=== PATIENT | female | born 1965 | race Caucasian/White ===

== ENCOUNTER 2018-03-20 22:52 | Observation (INO) | payer OTHER ==
[2018-03-20 23:16] LABS: #Basophils 0.1 thou/uL (0.0-0.2); #Eosinphils 0.2 thou/uL (0.0-0.7); #Lymphocytes 4.3 thou/uL (1.20-3.40); #Monocytes 0.9 thou/uL (0.11-0.59); #Neutrophils 4.1 thou/uL (1.40-6.50); %Basophils 1.1 % (0.0-1.0); %Eosinophils 2.5 % (0.0-10.0); %Lymphocytes 44.7 % (21.0-51.0); %Monocytes 9.1 % (0.0-10.0); %Neutrophils 42.6 % (42.0-75.0); Hemoglobin 13.3 g/dL (12.0-16.0); Mean Corpuscular HGB CONC 32.4 g/dL (32.0-36.0); Mean Corpuscular Hemoglobin 27.3 pg (27.0-31.0); Mean Corpuscular Volume 84.3 fL (78.0-98.0); Mean Platelet Volume 7.5 fL (7.4-10.4); Platelet Count 214 thou/uL (130-400); RBC Distribution Width 11.3 % (11.5-14.5); Red Blood Cell (RBC) Count 4.86 mill/uL (4.20-5.40); White Blood Cell (WBC) Count 9.6 thou/uL (4.8-10.8)
[2018-03-20] MEDS ORDERED: Magnesium Sulfate 2 GM/100 ML BAG ONE (23:17)
[2018-03-20 23:38] LABS: ALT (SGPT) 11 U/L (8-55); AST (SGOT) 13 U/L (5-34); Albumin 4.1 g/dL (3.5-5.0); Alkaline Phosphatase 81 U/L (40-150); Anion Gap 11 mmol/L (10-20); BUN (Urea Nitrogen) 21 mg/dL (9.8-20.1); Bilirubin, Total 0.3 mg/dL (0.2-1.2); Calc. Creatinine Clearance 0 mL/min (70-130); Calcium 9.9 mg/dL (7.8-10.44); Carbon Dioxide 26 mmol/L (22-29); Chloride 105 mmol/L (98-107); Estimated GFR-MDRD 67; Globulin 3.1 g/dL (2.4-3.5); Glucose 116 mg/dL (70-105); Lipase 31 U/L (8-78); Magnesium 1.8 mg/dL (1.6-2.6); Potassium 3.4 mmol/L (3.5-5.1); Protein, Total 7.2 g/dL (6.0-8.3); Sodium 139 mmol/L (136-145)
[2018-03-20 23:41] LABS: CKMB 0.5 ng/mL (0-6.6); Troponin I Less than 0.010 ng/mL (< 0.028)
[2018-03-20 23:58] LABS: Free T4 (Free Thyroxine) 1.4 ng/dL (0.70-1.48)
[2018-03-20 23:59] LABS: Thyroid Stimulating Hormone 0.3031 uIU/mL (0.35-4.94)
[2018-03-21 01:00] LABS: Bilirubin Negative (Negative); Blood, Urine Negative (Negative); Clarity CLOUDY (Clear); Glucose, Urine (Dipstick) Negative (Negative); Leukocyte Moderate (Negative); Nitrite Positive (Negative); Protein, Urine (Dipstick) Negative (Neg-Trace); Specific Gravity, Urine 1.011 (1.002-1.036); Urobilinogen 0.2 mg/dL (0.2-1.0); pH, Urine 6.5 (5.0-9.0)
[2018-03-21 01:03] LABS: Bacteria/HPF 4+ HPF (None Seen); Hyaline Casts/LPF 7-10 HYALINE CAST LPF (0-3 Hyaline); Pathc Cast-AUWi Flag 0.29 (0-2.49); RBC/HPF 0-3 HPF (0-3); Squamous Epithelial 0-3 HPF (0-3)
[2018-03-21 02:41] LABS: Troponin I Less than 0.010 ng/mL (< 0.028)
[2018-03-21 05:31] LABS: Troponin I Less than 0.010 ng/mL (< 0.028)
[2018-03-21] MEDS ORDERED: Diabetic Tussin 200 MG/10 ML UDCUP PO PRN (07:23)
[2018-03-21] MEDS ORDERED: Calcium Carbonate 500 MG ChewTAB PO PRN (07:23)
[2018-03-21] MEDS ORDERED: Ondansetron HCl/PF 4 MG/2 ML Vial IVP PRN (07:23)
[2018-03-21] MEDS ORDERED: Mag-Al 1200 mg/1200 mg/30 ML UDCUP PO PRN (07:23)
[2018-03-21] MEDS ORDERED: hydrALAZINE 20 MG/ML VIAL SLOW IVP PRN (07:23)
[2018-03-21] MEDS ORDERED: Senokot 8.6 MG TAB PO PRN (07:23)
[2018-03-21] MEDS ORDERED: Nitroglycerin 0.4 MG TAB (25 Tab Bottle) SL PRN (07:23)
[2018-03-21] MEDS ORDERED: cloNIDine 0.1 MG TAB PO PRN (07:23)
[2018-03-21] MEDS ORDERED: Benzonatate 100 MG CAP PO PRN (07:23)
[2018-03-21] MEDS ORDERED: Loratadine 10 MG TAB PO PRN (07:23)
[2018-03-21] MEDS ORDERED: Acetaminophen 325 MG TAB PO PRN (07:23)
[2018-03-21] MEDS ORDERED: Bisacodyl 5 MG TAB PO PRN (07:23)
[2018-03-21] MEDS ORDERED: Lorazepam 1 MG TAB PO PRN (07:23)
[2018-03-21] MEDS ORDERED: Zolpidem Tartrate 5 MG TAB PO PRN (07:33)
[2018-03-21] MEDS: cefTRIAXone\\ROCEPHIN 1 GM in Sodium Chloride 0.9% 100 ML IVPB SCH (08:24)
[2018-03-21] MEDS: Enoxaparin Sodium 40 MG/0.4 ML SYRINGE SC SCH (08:25)
[2018-03-21] MEDS: Multivit, Therapeutic 1 TAB PO SCH (08:25)
[2018-03-21] MEDS: Famotidine 20 MG TAB PO SCH ×2 (08:25→20:41)
[2018-03-21] MEDS ORDERED: Aspirin 325 MG TAB PO SCH (09:00)
[2018-03-21] MEDS ORDERED: Sodium Chloride 0.9% 1,000 ML IV SCH (10:30)
--- NOTE | 2018-03-21 10:43 | CON ---
DATE OF CONSULTATION: 03/21/2018 REASON FOR CONSULTATION: Presyncope and abnormal EKG. PRIMARY TRAVELING PLANT OPERATOR: Dr. Nilesh Winn. HISTORY OF PRESENT ILLNESS: Ms. House is a very pleasant 52-year-old white female who comes to the ospital for feeling presyncopal. She was at the [employer] festival yesterday. She had mojito with dinner and then she was having a glass of wine. She had not drank not even half of the glass that dennis d some weird taste to it, so she decided to throw it away and then started feeling tingly, lightheade d and felt like she was close to passing out. She never really did pass out, but was close to this. She stayed there having several episodes of this sort from about 10:00 p.m. to midnight when she fin ally went to see the paramedics [facility] and they recommend that she go to the hospital for evaluation. In the ER, she had initial EKG that showed normal sinus rhythm. A repeat EKG was o verread as atrial flutter; however, on my evaluation, it is sinus rhythm. She is probably just shaki ng during the EKG and has a lot of baseline artifact, but it is normal sinus rhythm. She was diagnos ed with a urinary tract infection with positive nitrites in the urine. She was started on antibiotic s. She already feels much better. During her telemetry monitoring, she has had rare PVCs and she dennis d a 4 beat run of PVCs as well. She was a patient of Dr. Winn. The last time she seen was in . She was being followed for hypertension and a family history of coronary artery disease. She dennis d a gastric sleeve at that time and she actually lost 165 pounds total and she has managed to keep em off. PAST MEDICAL HISTORY: 1. Hypertension, now diet controlled since her gastric sleeve. 2. Thyroid cancer. PAST SURGICAL HISTORY: 1. Gastric sleeve. 2. Hysterectomy secondary to endometriosis. 3. Left knee surgery. 4. Thyroidectomy. OUTPATIENT MEDICATIONS: 1. Zolpidem 10 mg a day. 2. Metoprolol 50 mg a day. 3. Levothyroxine 150 mcg a day. ALLERGIES: MORPHINE gives her rash. FAMILY HISTORY: Positive for early coronary artery disease in father. SOCIAL HISTORY: Social alcohol use, no tobacco or drugs. REVIEW OF SYSTEMS: A 12-point review of systems was done and is all negative unless stated in the hi story of present illness. PHYSICAL EXAMINATION: VITAL SIGNS: Temperature 97.5, pulse 61, respiration rate 20, satting 99% on room air, blood pressur e 119/70. GENERAL: Awake, alert, oriented x3, in no distress. HEENT: Normocephalic, atraumatic. NECK: Supple. LUNGS: Clear. CARDIOVASCULAR: S1, S2, no S3, S4, no murmurs. ABDOMEN: Soft, positive bowel sounds. EXTREMITIES: No edema. SKIN: Warm and dry. LABORATORY WORK: Reviewed. CBC is normal. Normal white count. Chemistry with a potassium of 3.4, glucose is 116. Troponin is negative x3. TSH was low at 0.3, but free T4 was normal at 1.4, normal albumin. UA had positive nitrites and moderate leukocyte esterase with 4+ bacteria and 4-6 white lindsey ls. IMAGING: EKG was reviewed, which showed normal sinus rhythm on the first EKG. Second EKG shows norm al sinus rhythm. There is no atrial flutter on the EKG. ASSESSMENT AND PLAN: 1. Urinary tract infection: Most likely this is the source of all her symptoms. Already being allen mary grace with antibiotics by primary team. 2. A 4 beat run of premature ventricular contractions: She probably will need a stress test. This can be done as an outpatient. We will try to set her up in the next 1-2 weeks with a nuclear stress test and follow up with Dr. Winn. Thank you for letting us to participate in the care of your patient. We will sign off. Please call with any questions.
[2018-03-21 11:17] LABS: Anion Gap 12 mmol/L (10-20); BUN (Urea Nitrogen) 12 mg/dL (9.8-20.1); Calc. Creatinine Clearance 134 mL/min (70-130); Calcium 9.4 mg/dL (7.8-10.44); Carbon Dioxide 22 mmol/L (22-29); Chloride 110 mmol/L (98-107); Estimated GFR-MDRD 84; Glucose 89 mg/dL (70-105); Potassium 4.1 mmol/L (3.5-5.1); Sodium 140 mmol/L (136-145)
--- NOTE | 2018-03-21 12:35 | RAD ---
AP VIEW CHEST: 03/21/2018 HISTORY: Syncope. FINDINGS: AP view chest demonstrates EKG leads seen over the chest. The lungs are well aerated. No evidence o f active intrathoracic disease is seen. No evidence of effusions, pneumonia, or pneumothorax is seen . IMPRESSION: Unremarkable one view chest. POS: [facility]
[2018-03-21] MEDS: Sodium Chloride 0.9% 1,000 ML IV SCH (14:09)
--- NOTE | 2018-03-21 15:46 | HP ---
DATE OF ADMISSION: 03/21/2018 PRIMARY CARE PHYSICIAN: Maykel Shirley M.D. CHIEF COMPLAINT: Near syncope. HISTORY OF PRESENT ILLNESS: Ms. House is a 52-year-old female with past medical history of thyroid c ancer status post thyroidectomy, on Synthroid, as well as history of hypertension, who presented to [facility] ER with the above-mentioned complaint. History is mainly obtained by the patient herself. [facility] medical records have been reviewed. Ms. House reports that she has been having some increased weakness and fatigue for the last few days. Yesterday, while she was drinking wine at 1 festival locally, she felt very weak, tingly and felt l missael she was going to pass out. Initially, she felt tingling in her lips and then her finger started got to tingle. She got short of breath and EMS was called. There is a report of EMS noticing ventri cular tachycardia en route. Upon arrival to the emergency room, the initial EKG showed normal sinus rhythm, but a repeat EKG was done, which was read as atrial flutter with 3:1 block by the emergency r oom physician. Her lab work was rather unimpressive. Cardiac enzymes normal. TSH 0.30 with normal free T4. She was given magnesium sulfate 2 grams and aspirin in the ER and was admitted for further workup of arrhythmias. The patient denies any other recent illnesses. She denies any fever or chills. She denies any chest pain, orthopnea or PND. She does have some increased urinary frequency and dysuria, but denies any nausea, vomiting, diarrhea. She denies any muscle weakness or problems with her speech or swallowing . No facial droop. No memory loss. PAST MEDICAL HISTORY: Hypertension, history of thyroid cancer status post thyroidectomy. PAST SURGICAL HISTORY: 1. Gastric sleeve operation in 2013. 2. Total thyroidectomy. 3. Uterine surgery for endometriosis. 4. section. 5. Hysterectomy. 6. Left knee surgery. ALLERGIES: MORPHINE. FAMILY HISTORY: Coronary artery disease in both of the parents, diagnosed around age 50. SOCIAL HISTORY: She is and lives with her family. No history of drug, tobacco or alcohol ab use. Drinks socially. CURRENT MEDICATIONS: Ambien 10 mg at bedtime, multivitamin 1 tablet daily, Toprol-XL 50 mg daily, le vothyroxine 150 mcg daily, Florastor 250 mg daily. REVIEW OF SYSTEMS: A 12-point review of systems was done, which is negative except for those mention ed in the history and physical. Constitutional: Weight loss or gain, ability to conduct usual activities. Skin: Rash, itching. Eyes: Double vision, pain. ENT/Mouth: Nose bleeding, neck stiffness, pain, tenderness. Cardiovascular: Palpitations, dyspnea on exertion, orthopnea. Respiratory: Shortness of breath, wheezing, cough, hemoptysis, fever or night sweats. Gastrointestinal: Poor appetite, abdominal pain, heartburn, nausea, vomiting, constipation, or diarrhea. Genitourinary: Urgency, frequency, dysuria, nocturia. Musculoskeletal: Pain, swelling. Neurologic/Psychiatric: Anxiety, depression. Allergy/Immunologic: Skin rash, bleeding tendency. LABORATORY DATA: CBC is unremarkable. Serum chemistries upon presentation showed BUN of 21, potassi um 3.4. Cardiac enzymes, troponin less than 0.010 x3. BNP is normal at 23. Free T4 normal at 1.40. TSH is adequately suppressed at 0.3031. Urinalysis was ordered by myself, which shows positive nit rite, leukocyte, wbc's and +4 bacteria. Chest x-ray by my review shows no pulmonary edema, effusion or infiltrate. Twelve lead EKG by my review shows normal sinus rhythm in the first and second EKG wi th some artifact. She does have few PVCs on the monitor. PHYSICAL EXAMINATION: VITAL SIGNS: Upon presentation, blood pressure 153/64, pulse of 75, respirations 16, saturating 99% on room air, afebrile. GENERAL: She does appear somewhat uncomfortable and pale and ill-looking but in no acute distress, a wake, alert, oriented x3. HEENT: Mucous membranes are slightly dry. No oropharyngeal exudate or erythema. Head is normocepha lic, atraumatic. Pupils equal, reactive to light and accommodation. Extraocular movement intact. NECK: Supple without any lymphadenopathy, JVD or bruit. CHEST: Clear to auscultation without any wheezing, rales or rhonchi. Rhythm is regular without any murmur, rubs or gallops. ABDOMEN: Soft, nontender, nondistended with positive bowel sounds. EXTREMITIES: Free of any cyanosis, clubbing, or edema. NEUROLOGIC: Nonfocal. SKIN: Free of any rashes or bruises. I feel warm and dry to touch. PSYCHIATRIC: Normal affect. IMPRESSION AND PLAN: 1. Arrhythmia is ruled out. The patient has normal sinus rhythm with infrequent few premature ventr icular contractions. Cardiology was consulted and Dr. Silveira has already seen her this morning. EKG was reviewed with him. The patient will undergo stress test as an outpatient. We will perform a tr ansthoracic echocardiogram inhouse. 2. Urinary tract infection. Likely the cause of the patient's near syncope and weakness symptoms. Urine culture will be sent and we will start her on empiric antibiotics. She does appear somewhat de hydrated, so we will start her on gentle IV fluid hydration. 3. Premature ventricular contractions. She had a 4-beat run of premature ventricular contractions a nd was rather asymptomatic. She will be monitored overnight on telemetry unit. 5. Hyperthyroidism secondary to iatrogenic Synthroid use. The patient has a history of thyroid canc er, status post thyroidectomy. This is adequate suppression of the TSH. Continue her home medicatio n. 6. Hypertension. We will restart her Toprol-XL with parameters. 7. Code status: FULL CODE, discussed with the patient. 8. Deep venous thrombosis and gastrointestinal prophylaxis. DISPOSITION: Ms. House is currently being admitted to the hospital with questionable arrhythmias whi ch have since been ruled out. She will be admitted and treated for UTI and will be monitored for PVC s on telemetry unit. Estimated length of stay at this time is less than 2 midnights. Further management will depend upon her clinical course.
[2018-03-22] MEDS: Sodium Chloride 0.9% 1,000 ML IV SCH (02:57)
[2018-03-22 04:48] LABS: Anion Gap 13 mmol/L (10-20); BUN (Urea Nitrogen) 11 mg/dL (9.8-20.1); Calc. Creatinine Clearance 146 mL/min (70-130); Carbon Dioxide 20 mmol/L (22-29); Chloride 111 mmol/L (98-107); Estimated GFR-MDRD Greater than 90; Glucose 98 mg/dL (70-105); Sodium 140 mmol/L (136-145)
[2018-03-22 06:43] LABS: Band 2 % (5-11); Eosinophils 4 % (0-10); Hemoglobin 12.5 g/dL (12.0-16.0); Lymphocytes 56 % (21-51); MDiff Complete? YES; Mean Corpuscular HGB CONC 31.8 g/dL (32.0-36.0); Mean Corpuscular Hemoglobin 26.8 pg (27.0-31.0); Mean Corpuscular Volume 84.2 fL (78.0-98.0); Mean Platelet Volume 8.4 fL (7.4-10.4); Monocytes 10 % (0-10); Neutrophil 25 % (42-75); PLT Morphology Comment Appears Adequate; Platelet Count 151 thou/uL (130-400); RBC Distribution Width 11.4 % (11.5-14.5); RBC Morphology Normal; Reactive Lymphocytes 3 % (0-10); Red Blood Cell (RBC) Count 4.68 mill/uL (4.20-5.40); White Blood Cell (WBC) Count 6.7 thou/uL (4.8-10.8)
[2018-03-22 07:52] VITALS: BP 137/83; TEMP 97.3
[2018-03-22] MEDS: Famotidine 20 MG TAB PO SCH (09:48)
[2018-03-22] MEDS: Multivit, Therapeutic 1 TAB PO SCH (09:49)
[2018-03-22] MEDS: Enoxaparin Sodium 40 MG/0.4 ML SYRINGE SC SCH (09:49)
[2018-03-22] MEDS: cefTRIAXone\\ROCEPHIN 1 GM in Sodium Chloride 0.9% 100 ML IVPB SCH (09:53)
--- NOTE | 2018-03-22 23:10 | DIS ---
DATE OF ADMISSION: 03/21/2018 DATE OF DISCHARGE: 03/22/2018 PRIMARY CARE PHYSICIAN: Maykel Shirley MD CONDITION AT THE TIME OF DISCHARGE: Stable and improved. DISCHARGE DIAGNOSES: 1. Urinary tract infection. 2. Near syncope secondary to urinary tract infection. 3. Premature ventricular contractions, asymptomatic. 4. Hyperthyroidism secondary to iatrogenic Synthroid use, status post thyroidectomy for thyroid canc er. 5. Hypertension. 6. New diagnosis of chronic diastolic congestive heart failure. DISCHARGE MEDICATIONS: Levofloxacin 500 mg p.o. daily for 7 days, Florastor 250 mg p.o. daily for 10 days. Resume home medications Synthroid 150 mcg daily, Toprol-XL 50 mg daily, multivitamin daily, a nd Ambien p.r.n. at bedtime. PROCEDURES DONE IN THE HOSPITAL: Transthoracic echocardiogram, which shows EF of 60% to 65% and grad e 2/3 diastolic dysfunction, [id number] tricuspid regurgitation. CONSULTATIONS IN-HOUSE: Cardiology, Dr. Silveira. HISTORY OF PRESENT ILLNESS: Ms. House is a 52-year-old otherwise healthy female except for history o f thyroid cancer, status post thyroidectomy and gastric sleeve operation, who presented to the emerge ncy room with complaints of near syncope-like symptoms after drinking some wine with numbness and tin gling in her face, lips, and arms. There was a question of atrial flutter and some arrhythmias upon presentation in the emergency room EKG, and she was admitted on telemetry unit for further workup. S erial cardiac enzymes were checked and were unremarkable. Please see admission history and physical for further details. HOSPITAL COURSE: The patient's urinalysis was checked and it was found to be consistent with UTI. S he was clinically dehydrated with some hypotension. She was started on IV fluids and empiric antibio tics, and urine culture was sent, which was growing E. coli by the time of discharge. Blood cultures were also checked, which were negative at the time of discharge. With question of atrial flutter, Cardiology was consulted and Dr. Silveira saw the patient. EKG was re viewed and it was found out that she had normal sinus rhythm and the atrial flutter read was actually just an artifact. The patient had few beats of PVCs, but was asymptomatic. She improved significan tly with IV fluid resuscitation and IV antibiotics and by the time of discharge, she was feeling back to her baseline. Echocardiogram was checked, which showed some diastolic dysfunction. Cardiology h as recommended that she undergo a stress test as an outpatient, which she will schedule. This morning, she is back to her baseline, eager to go home, and has been cleared by Cardiology for d ischarge as well. She was seen and examined prior to discharge. PHYSICAL EXAMINATION: This morning, VITAL SIGNS: Temperature 97.3, pulse of 72, respirations 15, saturating 100% on room air, blood pres sure 137/83. GENERAL: No acute distress, awake, alert, oriented x3. CHEST: Clear to auscultation bilaterally. HEART: Rate and rhythm are regular. LABORATORY DATA: CBC and serum chemistries are unremarkable. Troponin is less than 0.010 x3. TSH i s 0.30 with normal free T4 at 1.4. She will follow with PCP in [address] Silveira at the [facility]iology [facility] in 3-4 weeks. Discharge p raymundo was discussed with the patient and and they verbalized understanding.
== END 2018-03-22 11:22 | disposition home or self-care (01) ==
LOC: ERS 22:52 → 2SW 03-21 00:08
PROVIDERS: ADMIT Hospitalist; ATTEND Hospitalist
DX: N39.0 Urinary tract infection, site not specified (principal); R55 Syncope and collapse; B96.20 Unspecified Escherichia coli [E. coli] as the cause of diseases classified elsewhere; E05.80 Other thyrotoxicosis without thyrotoxic crisis or storm; T38.1X5A Adverse effect of thyroid hormones and substitutes, initial encounter; E89.0 Postprocedural hypothyroidism; I11.0 Hypertensive heart disease with heart failure; I50.32 Chronic diastolic (congestive) heart failure; I49.3 Ventricular premature depolarization; Z79.899 Other long term (current) drug therapy; Z88.5 Allergy status to narcotic agent; Z98.84 Bariatric surgery status
CPT/HCPCS: 36415; 71045; 80048; 80053; 81003; 81015; 82553; 83690; 83735; 83880; 84439; 84443; 84484; 85025; 87040; 87077; 87086; 87186; 93306; 96361; 96365; 96366; 96367; 96372; G0378; J0696; J1650; J1956; J3475; J7050

== ENCOUNTER 2018-06-08 16:59 | Emergency (ER) | payer OTHER ==
[2018-06-08] MEDS ORDERED: Ondansetron ODT 4 MG TAB ONE (17:02)
[2018-06-08] MEDS ORDERED: Metoclopramide HCl 10 MG/2 ML VIAL ONE (18:03)
[2018-06-08] MEDS ORDERED: diphenhydrAMINE 50 MG/ML VIAL ONE (18:04)
[2018-06-08 18:28] LABS: #Lymphocytes 0.9 thou/uL (1.20-3.40); #Monocytes 0.3 thou/uL (0.11-0.59); #Neutrophils 7.8 thou/uL (1.40-6.50); %Basophils 0.2 % (0.0-1.0); %Eosinophils 0.2 % (0.0-10.0); %Lymphocytes 10.2 % (21.0-51.0); %Monocytes 3.5 % (0.0-10.0); Mean Corpuscular HGB CONC 32.6 g/dL (32.0-36.0); Mean Corpuscular Hemoglobin 27.5 pg (27.0-31.0); Mean Corpuscular Volume 84.3 fL (78.0-98.0); Mean Platelet Volume 8.4 fL (7.4-10.4); Platelet Count 218 thou/uL (130-400); RBC Distribution Width 11.1 % (11.5-14.5); White Blood Cell (WBC) Count 9.1 thou/uL (4.8-10.8)
[2018-06-08 18:51] LABS: ALT (SGPT) 11 U/L (8-55); AST (SGOT) 14 U/L (5-34); Albumin 4.1 g/dL (3.5-5.0); Alkaline Phosphatase 74 U/L (40-150); Anion Gap 15 mmol/L (10-20); BUN (Urea Nitrogen) 18 mg/dL (9.8-20.1); Bilirubin, Total 0.7 mg/dL (0.2-1.2); Calc. Creatinine Clearance 0 mL/min (70-130); Calcium 9.8 mg/dL (7.8-10.44); Carbon Dioxide 20 mmol/L (22-29); Chloride 107 mmol/L (98-107); Estimated GFR-MDRD 81; Globulin 3.1 g/dL (2.4-3.5); Glucose 120 mg/dL (70-105); Lipase 10 U/L (8-78); Potassium 3.9 mmol/L (3.5-5.1); Protein, Total 7.2 g/dL (6.0-8.3); Sodium 138 mmol/L (136-145)
[2018-06-08] MEDS ORDERED: Dicyclomine 20 MG TAB ONE (19:45)
[2018-06-08] MEDS ORDERED: Ketorolac Tromethamine 30 MG/ML VIAL ONE (19:45)
[2018-06-08] MEDS ORDERED: Pantoprazole 40 MG VIAL ONE (20:19)
== END 2018-06-08 20:45 | disposition home or self-care (01) ==
LOC: ERS 16:59
DX: G43.909 Migraine, unspecified, not intractable, without status migrainosus (principal); R19.7 Diarrhea, unspecified; R10.9 Unspecified abdominal pain; I10 Essential (primary) hypertension
CPT/HCPCS: 80053; 83690; 85025; 96361; 96374; 96375; C9113; J1200; J1885; J2765; Q0162

== ENCOUNTER 2018-08-04 14:41 | Outpatient (CLI) | payer OTHER | END 2018-08-04 14:42 | disposition home or self-care (01) | LOC: BICMAMMO 14:41 | PROVIDERS: ATTEND Family Medicine | DX: Z12.31 Encounter for screening mammogram for malignant neoplasm of breast (principal); Z85.850 Personal history of malignant neoplasm of thyroid | CPT/HCPCS: 77063; 77067 ==

== ENCOUNTER 2019-08-05 09:21 | Outpatient (CLI) | payer OTHER ==
--- NOTE | 2019-08-05 12:42 | MMO ---
Bilateral MAMMO Bilat Screen [facility]. CLINICAL HISTORY: Patient is 53 years old and is seen for screening. The patient has no family history of breast cancer. The patient has no personal history of cancer. VIEWS: The views performed were: bilateral craniocaudal with tomosynthesis and bilateral mediolateral oblique with tomosynthesis. FILMS COMPARED: The present examination has been compared to prior imaging studies performed at [facility] on 01/31/2011, 03/15/2014, 08/23/2015 and 08/04/2018. This study has been interpreted with the assistance of computer-aided detection. MAMMOGRAM FINDINGS: There are scattered fibroglandular densities. Benign calcifications are noted bilaterally. Nodularity is stable. There are no suspicious masses, suspicious calcifications, or new areas of architectural distortion. IMPRESSION: THERE IS NO MAMMOGRAPHIC EVIDENCE OF MALIGNANCY. A ROUTINE FOLLOW-UP MAMMOGRAM IN 1 YEAR IS RECOMMENDED. THE RESULTS OF THIS EXAM WERE SENT TO THE PATIENT. ACR BI-RADS Category 2 - Benign finding MAMMOGRAPHY NOTE: 1. A negative mammogram report should not delay a biopsy if a dominant of clinically suspicious mass is present. 2. Approximately 10% to 15% of breast cancers are not detected by mammography. 3. Adenosis and dense breasts may obscure an underlying neoplasm. Reported by: EVAN ANTON MD Electonically Signed: [id number]
== END 2019-08-05 09:22 | disposition home or self-care (01) ==
LOC: BICMAMMO 09:21
PROVIDERS: ATTEND Family Medicine
DX: Z12.31 Encounter for screening mammogram for malignant neoplasm of breast (principal)
CPT/HCPCS: 77063; 77067

== ENCOUNTER 2020-10-10 14:03 | Outpatient (CLI) | payer BC | END 2020-10-10 14:04 | disposition home or self-care (01) | LOC: BICMAMMO 14:03 | PROVIDERS: ATTEND Family Medicine | DX: Z12.31 Encounter for screening mammogram for malignant neoplasm of breast (principal); Z85.850 Personal history of malignant neoplasm of thyroid | CPT/HCPCS: 77063; 77067 ==

== ENCOUNTER 2023-08-28 08:07 | Outpatient (CLI) | payer OTHER | END 2023-08-28 08:08 | disposition home or self-care (01) | LOC: BICMAMMO 08:07 | PROVIDERS: ATTEND Family Medicine | DX: Z12.31 Encounter for screening mammogram for malignant neoplasm of breast (principal); Z13.820 Encounter for screening for osteoporosis; M81.0 Age-related osteoporosis without current pathological fracture; M85.88 Other specified disorders of bone density and structure, other site; N63.15 Unspecified lump in the right breast, overlapping quadrants; Z85.850 Personal history of malignant neoplasm of thyroid | CPT/HCPCS: 77063; 77067; 77080 ==

== ENCOUNTER 2023-09-03 13:59 | Outpatient (CLI) | payer OTHER | END 2023-09-03 14:00 | disposition home or self-care (01) | LOC: BICULT 13:59 | PROVIDERS: ATTEND Family Medicine | DX: N63.15 Unspecified lump in the right breast, overlapping quadrants (principal) ==

== ENCOUNTER 2025-03-22 14:20 | Outpatient (CLI) | payer OTHER | END 2025-03-22 14:21 | disposition home or self-care (01) | LOC: BICMAMMO 14:20 | PROVIDERS: ATTEND Family Medicine | DX: Z12.31 Encounter for screening mammogram for malignant neoplasm of breast (principal); N64.89 Other specified disorders of breast; Z85.850 Personal history of malignant neoplasm of thyroid | CPT/HCPCS: 77063; 77067 ==